=== PATIENT | male | born 1940 | race Caucasian/White ===

== ENCOUNTER 2018-04-28 11:40 | Outpatient (CLI) | payer MEDICARE, SELFPAY ==
[2018-04-28 12:03] LABS: CREATININE 0.75 mg/dL (0.70-1.30)
== END 2018-04-28 12:00 ==
PROVIDERS: Visit Provider Radiology Radiation Oncology
DX: C15.5 Malignant neoplasm of lower third of esophagus (principal)
CPT/HCPCS: 36415; 82565

== ENCOUNTER → 2018-06-02 09:56 | Outpatient (BNVA) | payer MEDICARE, SELFPAY | PROVIDERS: Visit Provider Surgery | DX: C15.4 Malignant neoplasm of middle third of esophagus (principal); R13.10 Dysphagia, unspecified; R64 Cachexia; E86.0 Dehydration; W88.8XXA Exposure to other ionizing radiation, initial encounter; I10 Essential (primary) hypertension; E11.9 Type 2 diabetes mellitus without complications | CPT/HCPCS: 99203 ==

== ENCOUNTER 2018-06-02 11:37 | Outpatient (RCR) | payer OTHER, SELFPAY ==
[2018-06-02] MEDS: Normal Saline 2,000 ML 1000 ML IV (12:15)
[2018-06-02] MEDS: Normal Saline Flush 10 ML SYR IVP (12:23)
--- NOTE | 2018-06-02 13:31 | NS.NUTBLAN_ITS ---
Date of service: 06/02/18 Time of Service: 13:14 Nutritional Consult ASSESSMENT: Mr. Rivers has taken in minimal to zero calories for over two weeks. It is painful for him to swallow and he is unable to actually. At this point he cannot even get water down. He reports that 10 months ago he weighed 214 lbs. He is currently 68 and 141 lbs/64 kg. His BMI is 21.4 kg/m2 which is WNL. He has a history of type 2 diabetes. I do not have information at this time on how well it is controlled. His estimated energy needs are 1600 kcal-1900 kcal/day (25-30 kcal/kg/day also REE x 1.3). His estimated protein needs are 64g-83g/day (1.0-1.3g/kg/day). His estimated fluid needs are 1900 ml/day (35 ml/kg/day) NUTRITIONAL DIAGNOSIS: Severe malnutrition in the context of chronic illness based on AND/ASPEN guide lines for diagnosing malnutrition. This nutritional diagnosis is based on the fact that he has lost 34% of his body weight unintentionally over the past 10 months and that per report he has eaten less than 75% of his estimated energy needs for greater than or equal to a month. INTERVENTION: Mr. Rivers is scheduled for PEG tube placement tomorrow for feeding. Given his history of type 2 diabetes would recommend the following tube feeding regimen or equivalent: 360 ml (1.5 cans/boxes) of Glucerna 1.2 bonita (or equivalent formula) bolus, four times daily for a total of 6 cans per day or 1440 ml. This feeding provides 1728 bonita/day, 85 grams of protein per day, and 23 grams of fiber daily. This feeding provides 1150 ml of free water. Therefore recommend: 125 ml flush of free water pre and post bolus feed to provide 1000 ml of free water to meet his hydration needs. This feeding also provides 100% of his estimated macronutrient and micronutrient needs. MONITORING AND EVALUATION: Home health and infusion company to monitor tolerance and evaluate further plans. Time Spent in Nutritional Counseling and Treatment: LUCIEN
== END 2018-06-15 23:59 | disposition home or self-care (01) ==
LOC: INF 11:37
PROVIDERS: Visit Provider Surgery
DX: E86.0 Dehydration (principal); C15.9 Malignant neoplasm of esophagus, unspecified
CPT/HCPCS: 96360; 96361

== ENCOUNTER 2018-06-24 14:09 | Outpatient (CLI) | payer OTHER, SELFPAY ==
--- NOTE | 2018-06-24 17:38 | DI.RAD_ITS ---
SYMPTOM/DIAGNOSIS: RECENTLY COMPLETED RADIATION FOR ESOPHAGEAL CA, UNABLE TO TOLERATE TUBE FEEDINGS FLAT AND UPRIGHT ABDOMEN: No priors. The visualized lung bases show no evidence of congestive heart failure or pneumonia. There is a stent seen in the mediastinum. There is a feeding tube seen over the upper abdomen. There is a moderate amount of stool throughout the colon which may represent constipation. No evidence of bowel obstruction, organomegaly or pneumoperitoneum is present. Degenerative changes are seen in the spine and hips bilaterally. IMPRESSION: Findings suspicious for constipation. No evidence of bowel obstruction.
== END 2018-06-24 14:29 ==
PROVIDERS: PCP Internal Medicine; Visit Provider Internal Medicine
DX: C15.9 Malignant neoplasm of esophagus, unspecified (principal); Z92.3 Personal history of irradiation; Z93.1 Gastrostomy status; K59.00 Constipation, unspecified
CPT/HCPCS: 74019